=== PATIENT | male | born 1985 | race Caucasian/White ===

== ENCOUNTER 2019-12-04 19:03 | Observation (INO) ==
[2019-12-04] MEDS ORDERED: 0.9 % Sodium Chloride 1,000 ML IVC ONE (19:21)
[2019-12-04] MEDS ORDERED: Ondansetron 4 MG/2 ML VIAL IVP ONE (19:21)
[2019-12-04] MEDS ORDERED: *HR* HYDROmorphone (PF) 1 MG/ML SYRINGE IVP ONE (19:21)
[2019-12-04] MEDS ORDERED: Ketorolac 15 MG/ML VIAL IVP ONE (19:21)
[2019-12-04 19:31] LABS: Bilirubin,Urine Negative (Negative); Blood,Urine Large (Negative); Clarity,Urine Cloudy (Clear); Color,Urine Yellow (Yellow); Glucose,Urine (UA) Normal (Normal); Ketones,Urine 15 mg/dL (Negative); Leukocyte Esterase,Urine Trace (Negative); Nitrite,Urine Negative (Negative); Protein,Urine Trace mg/dL (Neg-Trace); Specific Gravity,Urine 1.022 (1.010-1.025); Urobilinogen,Urine Normal (Normal)
[2019-12-04 19:32] LABS: Bacteria,Urine None Seen per hpf (None-Few); Hyaline Casts,Urine None Seen per lpf (None-Few); RBC,Urine TNTC per hpf (0-3); Squamous Epithelial Cell,Urine Moderate per lpf (None-Few)
[2019-12-04 19:51] LABS: BUN/Creatinine Ratio 19 (6-26); Blood Urea Nitrogen 21 mg/dL (6-20); Calcium 9.7 mg/dL (8.6-10.3); Carbon Dioxide 24 mEq/L (23-29); Chloride 102 mEq/L (98-107); Glucose 113 mg/dL (70-105); Osmolality,Calculated 288 (280-300); Potassium 3.2 mEq/L (3.5-5.1); Sodium 137 mEq/L (136-145); eGFR For African Americans > 60 (> 60); eGFR For Non-African Americans > 60 (> 60)
[2019-12-04] MEDS ORDERED: *HR* HYDROmorphone (PF) 1 MG/ML SYRINGE IVP PRN (21:38)
[2019-12-04] MEDS ORDERED: *HR* OxyCODONE Immed Rel 5 MG TABLET PO PRN (21:38)
[2019-12-04] MEDS ORDERED: *HR* HYDROmorphone 2 MG TABLET PO PRN (21:38)
[2019-12-04] MEDS ORDERED: *HR* Promethazine 25 MG/ML VIAL IVP PRN (21:38)
[2019-12-04] MEDS ORDERED: *HR* Labetalol 20 MG/4 ML SYRINGE IVP PRN (21:38)
[2019-12-04] MEDS ORDERED: ceFAZolin 2,000 MG in Water for inj. (sterile) 20 ML IVP ONE (21:40)
[2019-12-04] MEDS ORDERED: Lidocaine -MPF 2% 2 ML VIAL ONE (21:49)
[2019-12-04] MEDS ORDERED: *HR* Midazolam HCl 2 MG/2 ML VIAL ONE (21:50)
[2019-12-04] MEDS ORDERED: *HR* Propofol 200 MG/20 ML VIAL IVP ONE (21:50)
[2019-12-04] MEDS ORDERED: *HR* FentaNYL (PF) 100 MCG/2 ML VIAL ONE (21:50)
[2019-12-04] MEDS ORDERED: Famotidine 20 MG/2 ML VIAL ONE (21:56)
[2019-12-04] MEDS ORDERED: Acetaminophen IV 1,000 MG/100 ML INFUS..BTL ONE (21:56)
[2019-12-04] MEDS ORDERED: Ondansetron 4 MG/2 ML VIAL IVP PRN (22:11)
[2019-12-04] MEDS ORDERED: Naloxone 0.4 MG/ML INJ IVP PRN (22:11)
[2019-12-04] MEDS ORDERED: 0.9 % Sodium Chloride 1,000 ML IVC SCH (22:15)
[2019-12-04] MEDS ORDERED: Dexamethasone 4 MG/ML VIAL ONE (22:23)
[2019-12-04] MEDS ORDERED: *HR* Magnesium Sulfate 1 GM/2 ML VIAL ONE (22:38)
[2019-12-04] MEDS ORDERED: *HR* PHENYLEPHRINE 1,000 MCG/10 ML SYRINGE IVP ONE (22:56)
[2019-12-05] MEDS: Ketorolac 30 MG/ML VIAL IVP SCH ×2 (00:10→05:23)
[2019-12-05] MEDS ORDERED: Acetaminophen IV 1,000 MG/100 ML INFUS..BTL IVPB SCH ×2 (06:00)
[2019-12-05 07:11] VITALS: BP 103/57
[2019-12-05] MEDS ORDERED: levoFLOXacin 500 MG/100 ML 500 MG/100 ML BAG IVPB SCH (09:00)
== END 2019-12-05 09:34 | disposition home or self-care (01) ==
LOC: 3ANU 19:03 → EMEROOARM 19:03 → 3ANU 21:47
PROVIDERS: ADMIT Urology; ATTEND Urology